=== PATIENT | male | born 1995 | race Two or more races ===

== ENCOUNTER 2019-03-18 07:24 | Emergency (ER) | payer BC ==
[~2019-03-18] VITALS: Ht 177.8 cm; Wt 99.8 kg
[2019-03-18 08:25] VITALS: BP 106/50
[2019-03-18] MEDS ORDERED: CEPHALEXIN 250 MG CAP PO ONE (08:45)
== END 2019-03-18 09:08 | disposition home or self-care (01) ==
LOC: EDBD 07:24 → ER 07:24
DX: S01.81XA Laceration without foreign body of other part of head, initial encounter (principal); F12.10 Cannabis abuse, uncomplicated; W22.8XXA Striking against or struck by other objects, initial encounter; Y93.89 Activity, other specified; Y99.8 Other external cause status; Y92.89 Other specified places as the place of occurrence of the external cause
CPT/HCPCS: 12014; 70450; 93005